=== PATIENT | male | born 1970 | race Caucasian/White ===

== ENCOUNTER 2017-09-16 10:16 | Emergency (ER) | payer BC ==
[2017-09-16] MEDS ORDERED: Sodium Chloride 0.9% 10 ML Syringe FLUSH PRN (10:24)
[2017-09-16] MEDS ORDERED: Aspirin 81 MG Tab.Chew PO ONE (12:13)
--- NOTE | 2017-09-16 12:40 | EDM.PDOC ---
ED HPI GENERAL MEDICAL PROBLEM - General Chief Complaint: Chest Pain Stated Complaint: CHEST PAIN/TIGHTNESS Time Seen by Provider: 09/16/17 10:19 Source of Information: Reports: Patient History Limitations: Reports: No Limitations - History of Present Illness INITIAL COMMENTS - FREE TEXT/NARRATIVE: The patient presents with left lower chest pain. This all started on Friday. [place] and he had to crank the wheels up. When he got into the pickup he had left chest pain and some shortness of breath. The pain is sharp at times and uncomfortable and it will radiate to his upper back. It comes and goes. Nothing really makes it better and nothing makes it worse. He has no fever, chills, cough, congestion, runny nose, abdominal pain, nausea or vomiting. He has no history of heart disease or hypertension. He does have a history of high cholesterol that he is trying to bring down with diet and exercise. He does have a family history of heart disease. His father had an LA at a young age. Other family members have high cholesterol. He does not smoke. Onset: Sudden Duration: Day(s): (2) Location: Reports: Chest Quality: Reports: Sharp Severity: Mild Improves with: Reports: None Worsens with: Reports: None Associated Symptoms: Reports: Chest Pain, Shortness of Breath. Denies: Fever/ Chills, Nausea/Vomiting Left Chest Pain Score (Numeric/FACES): 3 - Related Data Allergies Allergy/AdvReac Type Severity Reaction Status Date / Time ciprofloxacin [From Cipro] AdvReac Anxiety Verified 09/16/17 10:31 ciprofloxacin HCl AdvReac Anxiety Verified 09/16/17 10:31 [From Cipro] Home Meds: Home Meds Aspirin [Halfprin] 1 tab PO DAILY 09/16/17 [History] Past Medical History Other Gastrointestinal History: RLQ pain Genitourinary History: Reports: None Musculoskeletal History: Reports: Back Pain, Chronic - Past Surgical History HEENT Surgical History: Reports: Adenoidectomy, LASIK, Myringotomy w Tube(s), Tonsillectomy Male Surgical History: Reports: Vasectomy Musculoskeletal Surgical History: Reports: Arthroscopic Knee, Shoulder Surgery Other Musculoskeletal Surgeries/Procedures:: Tendon repair to left arm, achilles tendon surgery, ACL repair, shoulder surg x2 Social & Family History - Family History Cardiac: Reports: LA, Pacemaker, Stent - Tobacco Use Smoking Status *Q: Never Smoker - Recreational Drug Use Recreational Drug Use: No Drug Use in Last 12 Months: No ED ROS GENERAL - Review of Systems Review Of Systems: See Below Constitutional: Reports: No Symptoms HEENT: Reports: No Symptoms Respiratory: Reports: Shortness of Breath Cardiovascular: Reports: Chest Pain Endocrine: Reports: No Symptoms GI/Abdominal: Reports: No Symptoms : Reports: No Symptoms Musculoskeletal: Reports: No Symptoms ED EXAM, GENERAL - Physical Exam Exam: See Below Exam Limited By: No Limitations General Appearance: Alert, No Apparent Distress Ears: Normal External Exam Nose: Normal Inspection Head: Atraumatic, Normocephalic Neck: Normal Inspection Respiratory/Chest: No Respiratory Distress, Lungs Clear, Normal Breath Sounds Cardiovascular: Regular Rate, Rhythm, No Edema, No Murmur GI/Abdominal: Soft, Non-Tender, No Organomegaly, No Mass Back Exam: Normal Inspection Extremities: Normal Inspection Neurological: Alert, Oriented, No Motor/Sensory Deficits EKG INTERPRETATION EKG Date: 09/16/17 Time: 10:29 Rhythm: NSR Rate (Beats/Min): 75 [place]: Normal P-Wave: Present QRS: Normal ST-T: Elevated (Normal early repol) QT: Normal Course - Vital Signs Last Recorded V/S: Last Vital Signs Temp 97.7 F 09/16/17 10:20 Pulse 70 09/16/17 10:20 Resp 12 09/16/17 10:20 BP 144/91 H 09/16/17 10:20 Pulse Ox 99 09/16/17 10:24 - Orders/Labs/Meds Orders: Active Orders 24 hr Category Date Time Status Cardiac Monitoring [RC] . DIRECTED Care 09/16/17 10:24 Active EKG Documentation Completion [RC] ASDIRECTED Care 09/16/17 13:08 Active EKG Documentation Completion [RC] STAT Care 09/16/17 10:25 Active Oxygen Therapy [RC] PRN Care 09/16/17 10:24 Active Peripheral IV Care [RC] . DIRECTED Care 09/16/17 10:25 Active Sodium Chloride 0.9% [Saline Flush] Med 09/16/17 10:24 Active 10 ml FLUSH ASDIRECTED PRN Peripheral IV Insertion Adult [OM.PC] Stat Oth 01/02/18 10:24 Ordered EKG 12 Lead [EK] Stat Ther 09/16/17 13:07 Ordered Medication Orders Sodium Chloride (Saline Flush) 10 ml FLUSH ASDIRECTED PRN PRN Reason: Keep Vein Open Last Admin: 09/16/17 11:38 Dose: 10 ml Labs: Laboratory Tests 09/16/17 09/16/17 09/16/17 Range/Units 10:25 10:25 10:25 WBC 5.41 (4.23-9.07) K/mm3 RBC 5.34 (4.63-6.08) M/mm3 Hgb 15.8 (13.7-17.5) gm/L Hct 47.7 (40.1-51.0) % MCV 89.3 (79.0-92.2) fl MCH 29.6 (25.7-32.2) pg MCHC 33.1 (32.2-35.5) g/dl RDW Std Deviation 40.9 (35.1-43.9) fL Plt Count 273 (163-337) K/mm3 MPV 9.4 (9.4-12.3) fl Neut % (Auto) 49.1 (34.0-67.9) % Lymph % (Auto) 38.3 (21.8-53.1) % [place] % (Auto) 10.4 (5.3-12.2) % Eos % (Auto) 0.7 L (0.8-7.0) Baso % (Auto) 1.3 H (0.1-1.2) % Neut # (Auto) 2.66 (1.78-5.38) K/mm3 Lymph # (Auto) 2.07 (1.32-3.57) K/mm3 [place] # (Auto) 0.56 (0.30-0.82) K/mm3 Eos # (Auto) 0.04 (0.04-0.54) K/mm3 Baso # (Auto) 0.07 (0.01-0.08) K/mm3 D-Dimer, Quantitative < 0.19 L (0.19-0.59) mg/L Sodium 138 (136-145) mEq/L Potassium 3.8 (3.5-5.1) mEq/L Chloride 101 (98-107) mEq/L Carbon Dioxide 28 (21-32) mEq/L Anion Gap 12.8 (5-15) BUN 11 (7-18) mg/dL Creatinine 1.0 (0.7-1.3) mg/dL Est Cr Clr Drug Dosing 92.30 mL/min Estimated GFR (MDRD) > 60 (>60) mL/min BUN/Creatinine Ratio 11.0 L (14-18) Glucose 113 H (74-106) mg/dL Calcium 9.7 (8.5-10.1) mg/dL Total Bilirubin 0.5 (0.2-1.0) mg/dL AST 29 (15-37) U/L ALT 30 (16-63) U/L Alkaline Phosphatase 73 (46-116) U/L Troponin I < 0.017 (0.00-0.056) ng/mL Total Protein 8.3 H (6.4-8.2) g/dl Albumin 4.4 (3.4-5.0) g/dl Globulin 3.9 gm/dL Albumin/Globulin Ratio 1.1 (1-2) 09/16/17 Range/Units 14:00 WBC (4.23-9.07) K/mm3 RBC (4.63-6.08) M/mm3 Hgb (13.7-17.5) gm/L Hct (40.1-51.0) % MCV (79.0-92.2) fl MCH (25.7-32.2) pg MCHC (32.2-35.5) g/dl RDW Std Deviation (35.1-43.9) fL Plt Count (163-337) K/mm3 MPV (9.4-12.3) fl Neut % (Auto) (34.0-67.9) % Lymph % (Auto) (21.8-53.1) % [place] % (Auto) (5.3-12.2) % Eos % (Auto) (0.8-7.0) Baso % (Auto) (0.1-1.2) % Neut # (Auto) (1.78-5.38) K/mm3 Lymph # (Auto) (1.32-3.57) K/mm3 [place] # (Auto) (0.30-0.82) K/mm3 Eos # (Auto) (0.04-0.54) K/mm3 Baso # (Auto) (0.01-0.08) K/mm3 D-Dimer, Quantitative (0.19-0.59) mg/L Sodium (136-145) mEq/L Potassium (3.5-5.1) mEq/L Chloride (98-107) mEq/L Carbon Dioxide (21-32) mEq/L Anion Gap (5-15) BUN (7-18) mg/dL Creatinine (0.7-1.3) mg/dL Est Cr Clr Drug Dosing mL/min Estimated GFR (MDRD) (>60) mL/min BUN/Creatinine Ratio (14-18) Glucose (74-106) mg/dL Calcium (8.5-10.1) mg/dL Total Bilirubin (0.2-1.0) mg/dL AST (15-37) U/L ALT (16-63) U/L Alkaline Phosphatase (46-116) U/L Troponin I < 0.017 (0.00-0.056) ng/mL Total Protein (6.4-8.2) g/dl Albumin (3.4-5.0) g/dl Globulin gm/dL Albumin/Globulin Ratio (1-2) Meds: Medications Generic Name Dose Route Start Last Admin Trade Name Freq PRN Reason Stop Dose Admin Sodium Chloride 10 ml 09/16/17 10:24 09/16/17 11:38 Saline Flush FLUSH 10 ml ASDIRECTED PRN Administration Keep Vein Open Discontinued Medications Generic Name Dose Route Start Last Admin Trade Name Freq PRN Reason Stop Dose Admin Aspirin 324 mg 09/16/17 12:13 09/16/17 12:23 Aspirin PO 09/16/17 12:14 324 mg ONETIME ONE Administration - Re-Assessments/Exams Free Text/Narrative Re-Assessment/Exam: 09/16/17 12:42 I ordered an IV saline lock, labs, CXR and EKG. The patient took dome aspirin this morning. His EKG shows a NSR with normal early repol. His CBC and CMP looks good. His troponin is negative. He still has some discomfort. I ordered aspirin 324mg by mouth. I will get a repeat troponin and EKG at 3 hours. 09/16/17 14:39 His repeat EKG shows nothing acute and his repeat troponin was negative. Departure - Departure Time of Disposition: 15:05 Disposition: Home, Self-Care 01 Condition: Good Clinical Impression: Chest pain Qualifiers: Chest pain type: unspecified Qualified Code(s): R07.9 - Chest pain, unspecified Referrals: Linwood Munguia MD [Primary Care Provider] - Forms: ED Department Discharge Additional Instructions: Take ibuprofen or aleve for the pain. I have scheduled a stress test for you on Friday the 22 of September. Please come at 0645 to register. Please return if you are worse. - My Orders Last 24 Hours: My Active Orders 09/16/17 10:24 Cardiac Monitoring [RC] . DIRECTED Oxygen Therapy [RC] PRN Sodium Chloride 0.9% [Saline Flush] 10 ml FLUSH ASDIRECTED PRN Peripheral IV Insertion Adult [OM.PC] Stat 09/16/17 10:25 EKG Documentation Completion [RC] STAT Peripheral IV Care [RC] . DIRECTED 09/16/17 13:07 EKG 12 Lead [EK] Stat 09/16/17 13:08 EKG Documentation Completion [RC] ASDIRECTED - Assessment/Plan Last 24 Hours: My Active Orders 09/16/17 10:24 Cardiac Monitoring [RC] . DIRECTED Oxygen Therapy [RC] PRN Sodium Chloride 0.9% [Saline Flush] 10 ml FLUSH ASDIRECTED PRN Peripheral IV Insertion Adult [OM.PC] Stat 09/16/17 10:25 EKG Documentation Completion [RC] STAT Peripheral IV Care [RC] . DIRECTED 09/16/17 13:07 EKG 12 Lead [EK] Stat 09/16/17 13:08 EKG Documentation Completion [RC] ASDIRECTED
--- NOTE | 2017-09-16 12:42 | CR ---
Chest: Portable view of the chest was obtained. Comparison: No prior chest x-ray. Heart size and mediastinum are normal. Lungs are clear. Bony structures are grossly intact. Impression: 1. Nothing acute is identified on portable chest x-ray. Diagnostic code #1
[2017-09-16 15:28] VITALS: BP 134/84
== END 2017-09-16 15:25 | disposition home or self-care (01) ==
LOC: JD.ED 10:16
DX: R07.9 Chest pain, unspecified (principal); Z88.1 Allergy status to other antibiotic agents; Z79.82 Long term (current) use of aspirin
CPT/HCPCS: 36415; 71045; 80053; 84484; 85025; 85379; 93005; 99285; A9270; J7050; 93010; 99283-25